=== PATIENT | male | born 1960 ===

== ENCOUNTER 2018-06-23 07:30 | Day surgery (SDC) | payer OTHER ==
[2018-06-16 17:12] VITALS: BMI 28.3
[2018-06-23] MEDS ORDERED: Lidocaine 2% Inj (20ml) ONE (07:47)
[2018-06-23] MEDS ORDERED: Verapamil 2 ML ONE (07:47)
[2018-06-23] MEDS ORDERED: Phenylephrine 10 mg/ml Inj ONE (07:48)
[2018-06-23] MEDS ORDERED: Iohexol 350mgl/ml 50 ML ONE (07:48)
[2018-06-23] MEDS ORDERED: Iodixanol 320 MG/ML 100 ML BOTTLE IV ONE (07:48)
[2018-06-23] MEDS ORDERED: Iodixanol 320 MG/ML 200 ML BOTTLE IV ONE (07:48)
[2018-06-23] MEDS ORDERED: Nitroglycerin 50mg in D5W 50 MG/250 ML BOTTLE IV ONE (07:49)
[2018-06-23] MEDS ORDERED: Midazolam 2 MG/2 ML VIAL ONE ×2 (08:16→08:25)
--- NOTE | 2018-06-23 09:27 | CARDCATH ---
PROCEDURE DATE: 06/23/2018 INDICATIONS: Mr. Park, 57-year-old male with history of CAD, status post NH on 11/30/2017, who presented with complaints of chest pain to [facility], underwent POWER ENGINEER, underwent a diagnostic cath showing high-grade lesions in the left circumflex disease. The patient transferred to [place] for PCI of left circumflex. PROCEDURE PERFORMED: Left heart catheterization, coronary angiogram with percutaneous coronary intervention of mid left circumflex coronary artery, deployment of 2.5 x 15 mm [place] drug-eluting stent, regeneration from 80% down to 0% CARLEE-3 flow, 6-Yoruba left femoral access, Angio-Seal for hemostasis. TECHNIQUES OF PROCEDURE: A 6-Yoruba left femoral arterial access was obtained using modified Seldinger technique. XB 3.5 guiding catheter was used to engage the left coronary system. One angiogram was obtained. Lesion was identified, crossed with a [place] wire, predilated with a 2 balloon and then stented with a 2.5 x 15 mm [place] drug-eluting stent. Final angiogram done, regeneration down to 0% CARLEE-3 flow. IMPRESSION: Successful percutaneous coronary intervention of mid circumflex with deployment of 2.5 x 15 mm [place] drug-eluting stent. RECOMMENDATIONS: The patient can be transferred back to [facility] in 3 hours. Continue the patient with antiplatelet therapy for 1 year, guideline directed therapy for CAD. Mark Anthony Marte MD
[2018-06-23 10:28] VITALS: TEMP 98.1
[2018-06-23 11:01] VITALS: RESP 18
[2018-06-23 12:16] VITALS: BP 130/72; PULSE 75
== END 2018-06-23 12:42 | disposition short-term general hospital (02) ==
LOC: CATH 07:30 → 2RSO 09:16 → CATH 12:42
PROVIDERS: ATTEND Internal Medicine Interventional Cardiology
DX: I25.10 Atherosclerotic heart disease of native coronary artery without angina pectoris (principal); I25.2 Old myocardial infarction
CPT/HCPCS: 85175; 99152; C1725; C1760; C1769 ×2; C1874; C1887 ×2; C1894; C9600; J1644 ×2; J2250; J3010; Q9966; Q9967